=== PATIENT | female | born 1950 | race Caucasian/White ===

== ENCOUNTER 2016-09-17 12:43 | Emergency (ER) | payer MEDICARE, OTHER ==
[~2016-09-17] VITALS: Ht 162.6 cm; Wt 60.0 kg
[~2016-09-17 12:43] MED LIST: BENICAR40 MG PO; CARAFATE 1GM1 G PO; FERRO-TIME325 MG PO; LEVOTHROID0.075 MG PO; LIPITOR20 MG PO; MECLIZINE HCL25 MG PO; MECLIZINE25 M1 PO; NORCO 325 MG-51 TAB PO; NORVASC 10MG10 MG PO; PRILOSEC 20MG20 MG PO; PRINZIDE 25 MG-1 TAB PO; SERTRALINE HCL100 MG PO; TOPROL XL 50MG50 MG PO; ULTRAM 50MG TAB50 MG PO
[2016-09-17 12:44] VITALS: TEMP 98.3
[2016-09-17] MEDS ORDERED: TYLENOL W/COD1 UDTAB PO (13:18)
[2016-09-17] MEDS ORDERED: FLEXERIL 1010 MG/TAB PO (13:49)
[2016-09-17] MEDS ORDERED: ASPIRIN 81M81 MG/TA2 PO (13:49)
[2016-09-17] MEDS ORDERED: MULTI VITAMINS1 TAB PO (13:50)
[2016-09-17] MEDS ORDERED: NEURONTIN600 MG/TAB PO (13:51)
[2016-09-17] MEDS ORDERED: ALDACTAZIDE 251 TAB PO (13:52)
[2016-09-17] MEDS ORDERED: PLEGRIDY125 MCG/0. SQ (13:54)
[2016-09-17] MEDS ORDERED: ZOLOFT 100MG100 MG PO (13:54)
[2016-09-17] MEDS ORDERED: ZOCOR 20MG20 MG PO (13:54)
[2016-09-17 14:30] VITALS: BP 117/50; PULSE 78
== END 2016-09-17 14:25 | disposition home or self-care (01) ==
LOC: COL.ER 12:43
DX: S70.02XA Contusion of left hip, initial encounter (principal); G35 Multiple sclerosis; F32.9 Major depressive disorder, single episode, unspecified; M41.9 Scoliosis, unspecified; E78.5 Hyperlipidemia, unspecified; Z79.82 Long term (current) use of aspirin; W10.9XXA Fall (on) (from) unspecified stairs and steps, initial encounter; Y92.009 Unspecified place in unspecified non-institutional (private) residence as the place of occurrence of the external cause

== ENCOUNTER → 2016-10-20 | Outpatient (CLI) | payer MEDICARE, OTHER ==
[~2016-10-20] MED LIST changes: +ALDACTAZIDE 251 TAB PO; +ASPIRIN 81M81 MG/TA2 PO; +FLEXERIL 1010 MG/TAB PO; +MULTI VITAMINS1 TAB PO; +NEURONTIN600 MG/TAB PO; +PLEGRIDY125 MCG/0. SQ; +TYLENOL W/COD1 UDTAB PO; +ZOCOR 20MG20 MG PO; +ZOLOFT 100MG100 MG PO
== END ==
LOC: MHCPAIN 12:43
DX: M47.817 Spondylosis without myelopathy or radiculopathy, lumbosacral region (principal); M53.3 Sacrococcygeal disorders, not elsewhere classified; R52 Pain, unspecified; M84.48XA Pathological fracture, other site, initial encounter for fracture; Z79.82 Long term (current) use of aspirin
CPT/HCPCS: G0463

== ENCOUNTER → 2017-01-03 | Outpatient (RCR) | payer MEDICARE, OTHER | LOC: MKS.ESL.PT | DX: S32.10XA Unspecified fracture of sacrum, initial encounter for closed fracture (principal); M25.552 Pain in left hip; R29.6 Repeated falls; R26.89 Other abnormalities of gait and mobility; Z74.09 Other reduced mobility | CPT/HCPCS: G8978-GP; G8979-GP ==

== ENCOUNTER → 2017-01-19 | Outpatient (CLI) | payer MEDICARE, OTHER | LOC: MHCPAIN 11:15 | DX: G89.29 Other chronic pain (principal); M53.3 Sacrococcygeal disorders, not elsewhere classified; Z87.891 Personal history of nicotine dependence | CPT/HCPCS: G0463 ==

== ENCOUNTER 2017-01-31 09:15 | Outpatient (RCR) | payer MEDICARE, OTHER | END 2017-04-05 | LOC: MKS.ESL.PT | DX: M25.552 Pain in left hip (principal); W19.XXXA Unspecified fall, initial encounter | CPT/HCPCS: G8979-GP; G8980-GP ==